=== PATIENT | female | born 1965 | race Caucasian/White ===

== ENCOUNTER 2019-10-22 15:31 | Emergency (ER) | payer MEDICARE, MEDICAID ==
[~2019-10-22] VITALS: Ht 170.2 cm; Wt 73.0 kg
[~2019-10-22 15:31] MED LIST: SIMV20TA PO; TRAZ-256 PO
[2019-10-22 15:42] VITALS: BP 136/67
[2019-10-22] MEDS ORDERED: HYDROcodone/acetaminophen 5mg/325mg tablet PO ONE (16:30)
[2019-10-22] MEDS ORDERED: ondansetron 4mg rapidly disintigrating tab PO ONE (16:30)
[2019-10-22] MEDS ORDERED: HYDR-4383 PO (17:02)
[2019-10-22] MEDS ORDERED: ONDA4TAB6 PO (17:02)
== END 2019-10-22 17:14 | disposition home or self-care (01) ==
LOC: ER 15:32
DX: M25.562 Pain in left knee (principal); F12.90 Cannabis use, unspecified, uncomplicated; Z98.890 Other specified postprocedural states; Z88.2 Allergy status to sulfonamides; Z88.5 Allergy status to narcotic agent; Z79.899 Other long term (current) drug therapy
CPT/HCPCS: 29505; 73564; 99284

== ENCOUNTER 2024-12-28 11:31 | Outpatient (CLI) | payer MEDICARE, MEDICAID ==
[~2024-12-28 11:31] MED LIST changes: +HYDR-4383 PO; +ONDA4TAB6 PO; +SIMV-342 PO; -SIMV20TA PO
--- NOTE | 2024-12-28 14:04 | RADIOLOGY REPORT ---
Procedure: CT CT CHEST Reason for study/Clinical History: ENCNTR SCREEN FOR MALIGNANT NEOPLASM OF RESPIRATORY ORGANS Comparison Study: None Exam Date: 12/28/2024 11:39 AM TECHNIQUE: Multidetector CT of the chest was performed from the lung apices to the upper abdomen without the use of intravenous contract. Axial, coronal and sagittal multiplanar reformats were performed. Radiation Dose Information: CT Dose: CTDI volume is 1.8 mGy. Dose-length product is 69 mGy*cm The dose indicators for CT are the volume Computed Tomography (CT) Dose Index (CTDIvol) and the Dose Length Product (DLP), and are measured in units of mGy and mGy-cm, respectively. These indicators are not patient dose, but values generated from the CT scanner acquisition factors. The report includes radiation exposure data for exposures received during this examination. FINDINGS: Lower neck: Normal thyroid. Lungs: Mild pulmonary hyperexpansion. Minimal bilateral apical parenchymal scarring. No focal consolidation, pleural effusion or pneumothorax. There is some dependent atelectasis in the right lung base. Heart/Vascular Structures: Normal heart size. No pericardial effusion. Lymph Nodes: No adenopathy Pleura: No pleural effusion or significant pneumothorax. Musculoskeletal: No acute osseous abnormality. Soft tissues: Normal. Upper abdomen: Limited portions of the upper abdomen are unremarkable. IMPRESSION: 1. No signs of malignancy. No acute cardiopulmonary pathology Radiation optimization: All CT scans at this facility use at least one of these dose optimization techniques: automated exposure control mA and/or kV adjustment per patient size (includes targeted exams where dose is matched to clinical indication) or iterative reconstruction.
== END 2024-12-28 23:59 | disposition home or self-care (01) ==
LOC: RAD 11:31
PROVIDERS: ATTEND Nurse Practitioner Family
DX: Z12.2 Encounter for screening for malignant neoplasm of respiratory organs (principal); Z87.891 Personal history of nicotine dependence
CPT/HCPCS: 71271